=== PATIENT | female | born 1945 | race Caucasian/White ===

== ENCOUNTER 2016-08-26 08:55 | Inpatient (IN) | payer MEDICARE, OTHER ==
[2016-08-24 11:15] LABS: HEMOGLOBIN 12.1 g/dL (12.0-16.0)
[2016-08-24 11:23] LABS: BUN (BLOOD UREA NITROGEN) 23 MG/DL (6-23); CALCIUM, SERUM 10.1 MG/DL (8.5-10.4); CHLORIDE, SERUM 98 MMOL/L (96-112); CO2 (CARBON DIOXIDE) 31 MMOL/L (24-34); CREATININE 1.71 MG/DL (0.55-1.02); GFR AFRICAN AMERICAN 35 ML/MIN (>=60); GFR NON AFRICAN AMERICAN 30 ML/MIN (>=60); GLUCOSE, SERUM 350 MG/DL (60-99); POTASSIUM, SERUM 3.4 MMOL/L (3.5-5.3); SODIUM, SERUM 137 MMOL/L (135-148)
--- NOTE | ~2016-08-26 | CN ---
Consultation Report [facility] [address] [place]. [address] NAME: RINA LUTZ : 47 STATUS : ADM IN PAT#: [id number] AGE: 70 ADM/REG DATE : 08/26/16 MR#: [id number] REPORT SERV DATE: 08/31/16 DICTATED BY: DATE: REPORT STATUS : Draft TRANSCRIBED BY: MODL DATE: 08/31/16 CONSULT DATE OF CONSULTATION: REASON FOR CONSULTATION: Acute kidney injury. HISTORY OF PRESENT ILLNESS: Ms. Lutz is a 70-year-old white female with a history of rheumatoid arthritis, diabetes, hypertension, and COPD, who is here with lumbar spine surgery, postop day 5. In regard to kidney function, denies any history of kidney disease in the past; however, when I reviewed records, it looks as though she does have some degree of kidney disease. In 07/2016, her creatinines were around 1.1. On, 08/24/2016, her preop labs, her creatinine was 1.7. Since hospitalization, her creatinine has gone from 1.38-1.95 2.8-3.1. She suffered from postop hypotension with hypotension as recent as yesterday. She also had some urinary retention and problems with over sedation in the last 48 hours. Over the last 24 hours, she has had a Ojeda placed and she has had excellent urine output. She had over 2 L urine output yesterday and given that her creatinine has risen to 3.1, we have been asked to see her in consultation. Today, she is having problems with hypoglycemia and medicines have been adjusted. It is of note that the patient has been on Invokana, which can induce renal failure as well. No shortness of breath, chest pain, tightness, or pressure. No nausea, and vomiting. She is currently very drowsy as she has been up with physical therapy this morning. PAST MEDICAL HISTORY: Rheumatoid arthritis, diabetes, hypertension, hyperlipidemia, low back pain, scoliosis, obstructive sleep apnea, fibromyalgia, COPD, anemia, and hiatal hernia. ALLERGIES: NSAIDS, LORATADINE, AND SALICYLATE. SOCIAL HISTORY: She is , lives with her . No tobacco, alcohol, or illicit drug use. FAMILY MEDICAL HISTORY: RA and diabetes. CURRENT MEDICATIONS: Imuran, Coreg, vitamin D, Colace, Neurontin, Lopid, NovoLog, MS Contin, Deltasone, Crestor and Senokot. REVIEW OF SYSTEMS: 12-point review of systems is obtained and negative with the exception of that in the HPI. PHYSICAL EXAMINATION: VITAL SIGNS: Temp 98, blood pressure 141/75, pulse 86, respiratory rate 15, O2 saturation is 98%. GENERAL: This is a pleasant, cooperative, white female. She is currently very drowsy, but will awaken and answer questions. Consultation Report [place] [address] [place]. [address] NAME: RINA LUTZ : 47 STATUS : ADM IN PAT#: [id number] AGE: 70 ADM/REG DATE : 08/26/16 MR#: [id number] REPORT SERV DATE: 08/31/16 DICTATED BY: DATE: REPORT STATUS : Draft TRANSCRIBED BY: EMORY DATE: 08/31/16 HEENT: Normocephalic, atraumatic. Conjunctivae clear. Sclerae nonicteric. Oral mucosa is moist. NECK: Thick. No lymphadenopathy. Neck veins flat. RESPIRATIONS: Even and unlabored. Breath sounds are coarse and few scattered wheezes. HEART: Rate is regular. No murmur, rub, or gallop. ABDOMEN: Obese, soft, nontender. No CVA tenderness. EXTREMITIES: No edema, cyanosis, or clubbing. SKIN: No unusual rash or skin lesions. NEURO: Generalized weakness. No focal deficits. Mood and affect flat but appropriate. PERTINENT LABS AND X-RAYS: Sodium 135, potassium 3.9, chloride 102, CO2 of 22, BUN of 49, creatinine of 3.1, calcium 8.2, albumin of 2, magnesium 2.2. WBC 6.3, H and H 9 and 26, platelets 239,000. IMPRESSION: 1. Acute kidney injury on what is probable chronic kidney disease, stage 3. 2. Hypotension. 3. Over sedation. 4. Urinary retention. 5. Acute blood loss anemia. 6. Type 2 diabetes. 7. Rheumatoid arthritis. 8. Hypoglycemia. 9. Lumbar spine surgery, postop day 5. PLAN: Acute kidney injury, most likely due to hypotension with over sedation from pain medications plus or minus urinary retention. She has a Ojeda catheter in place with good urine output, would keep this for now. ARB and HCTZ, both have been held appropriately also Invokana. If her kidney function does not improve dramatically, she is not a candidate for that drug anymore. We will check urine studies as there is none available. I will not do any imaging given that she has excellent urine output. We will follow labs along with you. Hope to see improvement in kidney function in the next 24-48 hours. Further orders and recommendations, pending clinical course. GAL/EMORY AJAY CeilsP / [id number] CC: Rob Fishman II, M.D. Consultation Report [address] [place]. [address] NAME: RINA LUTZ : 47 STATUS : ADM IN [facility]#: [id number] AGE: 70 ADM/REG DATE : 08/26/16 MR#: [id number] REPORT SERV DATE: 08/31/16 DICTATED BY: DATE: REPORT STATUS : Draft TRANSCRIBED BY: MODL DATE: 08/31/16 Frank Jerez M.D.
--- NOTE | ~2016-08-26 | OP ---
Record Of Operation [facility] [address] [place]. [address] NAME: RINA LUTZ : 47 STATUS : ADM IN PAT#: [id number] AGE: 70 ADM/REG DATE : 08/26/16 MR#: [id number] REPORT SERV DATE: 08/28/16 DICTATED BY: ROBE FISHMAN II DATE: 08/28/16 REPORT STATUS : Draft TRANSCRIBED BY: MODL DATE: 08/28/16 DATE OF PROCEDURE: 08/26/2016 PREOPERATIVE DIAGNOSES: 1. Left greater than right lower extremity radiculopathy. 2. Severe scoliosis. 3. 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 4. 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 POSTOPERATIVE DIAGNOSES: 1. Left greater than right lower extremity radiculopathy. 2. Severe scoliosis. 3. 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 4. Nonunion, L2-3, L3-4. PROCEDURES: 1. Revision facetectomy and laminectomy, L3-4, L4-5. 2. Posterolateral arthrodesis, L2-3, L3-4, L4-5. 3. Interbody arthrodesis, L4-L5. 4. Application of prosthetic device, L4-L5. 5. Posterior segmental instrumentation, L2 to L5. 6. Use of local autograft, allograft substitute, and bone morphogenic protein. 7. Use of the microscope and stereotactic spinal imaging. SURGEON: Robe Fishman M.D. IV FLUIDS: 1800 mL LR. ESTIMATED BLOOD LOSS: 200 mL. DRAIN: One. COMPLICATIONS: None. PREOPERATIVE HISTORY: This is a friendly 70-year-old female, who did well for a while following her surgery. She has now developed recurrent stenosis at L3-4, but it appears her most symptomatic level is L4-5 below the previous fusion. We had chosen previously to perform a limited decompression and fusion and not pursue the entire scoliosis curve. I advised her again we could take this approach or we could consider approximately T10 to the pelvis fusion. It was not a component of this approach as I felt her bone was likely too soft and overall I felt that surgery was likely too large. She overall was having minimal back pain, but predominantly leg pain. DESCRIPTION OF PROCEDURE: After informed consent was obtained, the patient was brought to the operating room at her request and general anesthesia achieved. She was placed in prone position. The back was prepped and draped in a sterile fashion. The stereotactic spinal Record Of Operation [facility] [place] [address] [place]. [address] NAME: RINA LUTZ : 47 STATUS : ADM IN PAT#: [id number] AGE: 70 ADM/REG DATE : 08/26/16 MR#: [id number] REPORT SERV DATE: 08/28/16 DICTATED BY: ROBE FISHMAN II DATE: 08/28/16 REPORT STATUS : Draft TRANSCRIBED BY: EMORY DATE: 08/28/16 pin was placed into the iliac crest on the right and the intraoperative CT scan completed. Stereotactic guidance was then used throughout the case. Next, the minimally invasive incision was then performed on the left at L4-5 and also L2-3 and L3-4. The area was evaluated. There was clearly still obvious motion at L2-3 and L3-4. This established our suspicion of nonunion at L2-3 and L3-4. At this point, with the microscope in place, we then removed the facet at L4-5. A complete facetectomy was performed. There was fairly severe compression upon the exiting L4 nerve root from the coronal collapse noted on the standing AP radiograph from the office. At this point, the L4 nerve root was acceptably decompressed and now we turned our attention to the L5 nerve root, where additional facet and ligamentum flavum were removed. At this point, we then performed an interbody approach at L4-5. The disk was now removed and the endplates prepared. The heidy and curettes were now used. The prosthetic device was then chosen at L4-5. It was placed without difficulty. At this point, we also placed local autograft and allograft substitute at the disk space at L4-5. At this point, we then placed pedicle screws from L2 to L5. Again, the bone quality was moderately osteoporotic. We then on the right side removed the screws at L2-L3 and then placed new hardware from L2 to L5. A repeat CT scan confirmed acceptable placement of the implants. The rods were contoured at this point, which was overall rather difficult because of the scoliosis. Final tightening was performed. At this point, we then decorticated the transverse processes of L2, L3, L4, and L5. Local autograft was in place along the decorticated surfaces along with bone morphogenic protein and allograft substitute. A deep drain was placed followed by standard closure, and the patient was then extubated and transferred to PACU in stable condition. ROJAS/EMORY Robe Fishman II, M.D. / [id number] CC: Kim Starr II, M.D.
--- NOTE | ~2016-08-26 | DS ---
Discharge Summary [place] [address] [facility] [place]. [address] NAME: RINA LUTZ : 47 STATUS : DIS IN PAT#: [id number] AGE: 70 ADM/REG DATE : 08/26/16 MR#: [id number] REPORT SERV DATE: 09/15/16 DICTATED BY: ROBE FISHMAN II DATE: 09/14/16 REPORT STATUS : Draft TRANSCRIBED BY: EMORY DATE: 09/14/16 Data Collection from hospitalization DISCHARGE DIAGNOSES: 1. Left greater than right lower extremity radiculopathy. 2. Severe scoliosis. 3. 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 4. 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 5. Hypertension. 6. Diabetes. 7. Anemia. 8. Arthritis. 9. Gastroesophageal reflux disease. 10.Hyperlipidemia. 11.Osteoarthritis. 12.Rheumatoid arthritis. 13.Scoliosis. 14.Hypercholesterolemia. CONSULTATIONS: 1. ROSA Celis. 2. Sean Garza APN. PROCEDURES PERFORMED: Revision facetectomy and laminectomy L3-4 and L4-5; posterolateral arthrodesis L2-3, L3-4, L4-5; interbody arthrodesis L4-L5; application of prosthetic device at L4-L5; posterior segmental instrumentation L2-L5; use of local autograft, allograft substitute, and bone morphogenic protein; use of microscope and stereotactic spinal imaging on 08/26/2016. PATHOLOGY: Lumbar spine L2-L5 removal and repair - orthopedic hardware (gross assessment). Fragmented bone cartilage and soft tissue. No evidence was seen of an infectious or neoplastic process. MEDICATIONS: Imuran 50 mg twice a day, Coreg 3.125 mg twice a day - hold for systolic blood pressure less than 100, vitamin D 65560 units on Wednesdays at 9 a.m., Neurontin 100 mg daily, Lopid 600 mg twice a day, NovoLog injection insulin as instructed, Crestor 40 mg at bedtime, Senokot two tablets daily, Deltasone 5 mg every morning as instructed, Fosamax 70 mg on Monday, Prolia 60 mg subcutaneously as instructed, aspirin 81 mg daily, Zyrtec 10 mg daily as needed, Roxicodone 5 mg every four hours as needed for pain, Valium 2 mg every four hours as needed for muscle spasms, MiraLAX 1 packet daily as instructed, and lactulose 30 mL daily as instructed. CONDITION AT DISCHARGE: Stable. DISPOSITION: The patient was discharged to [facility] on an 1800-calorie diabetic diet. Activities as instructed. She would follow up with [facility] 3- 4 weeks following discharge. She would follow up with Dr. Robe Fishman 2 weeks following discharge. She would follow up with her primary care physician 3-4 weeks following Discharge Summary [place] [address] [place]. [address] NAME: RINA LUTZ : 47 STATUS : DIS IN PAT#: [id number] AGE: 70 ADM/REG DATE : 08/26/16 MR#: [id number] REPORT SERV DATE: 09/15/16 DICTATED BY: ROBE FISHMAN II DATE: 09/14/16 REPORT STATUS : Draft TRANSCRIBED BY: EMORY DATE: 09/14/16 discharge. HOSPITAL COURSE: This is a 70-year-old female who had complained of lumbar spine related symptoms. Her symptoms were located at the mid lower back when she was still with radiation into the bilateral hips and into the bilateral lower extremities when she was walking. She had associated numbness, tingling, and weakness. The patient reports that she was last seen in the office two weeks prior to this admission. She reported that her pain level was a 6 on a scale of 0 to 10. She has left greater than right lower extremity radiculopathy. She has severe scoliosis and suspected nonunion. She has nonunion at L2-3 and L3-4. Treatment options were discussed, and it was elected to proceed with surgical intervention. She was admitted to the hospital for further evaluation and treatment. Upon admission, she was taken to the operating room where she underwent the above-mentioned procedure. She tolerated this well, and there were no complications. On postop day #1, she was alert and cooperative. She was in no acute distress. She had a normal respiratory effort. On the , she remained stable. She was evaluated by Physical Therapy. She was seen in consultation. She was seen by Sean Garza. The patient had some postop hypotension, some hyponatremia, and hypokalemia. The patient was still on home hydrochlorothiazide, losartan, and carvedilol. She has hypoglycemia on Amaryl. She did complain of some back pain. Her MS Contin has been held secondary to hypotension. Hydrochlorothiazide and losartan were discontinued, Coreg would be held if systolic blood pressure was less than 100. IV fluids were being provided. Januvia was added, Amaryl was discontinued. Potassium supplementation was provided. Beta-loren was continued. On 08/29/2016, she remained stable. She did complain of some abdominal pain. We encouraged her to mobilize. Orthostatic blood pressures were checked. She had been complaining of some abdominal discomfort and had poor oral intake. IV fluids were continued. Creatinine had increased to 1.95. The next day, she received two units of packed red blood cells. She denied chest pain, shortness of breath, or abdominal pain. A bladder scan had been performed. The Ojeda catheter was placed for some urinary retention. Creatinine was now 2.81. She was felt to have acute kidney injury on chronic kidney disease. She has not had a bowel movement postoperatively. She has obstructive sleep apnea, and her said she is intolerant of the CPAP. A laxative was given. Sliding scale insulin continued. The next day, she seemed to be more alert. Oral intake was improving. She still felt a little weak. She did have a bowel movement. Creatinine had risen despite IV fluids and transfusion. She was seen by Deb Nava regarding acute kidney injury. Over the last 24 hours, she had a Ojeda placed and had excellent urine output. Her creatinine had risen to 3.1. She had some problems with hypoglycemia, and her medications were adjusted. The patient had been on Invokana, which can induce renal failure. Her impression included acute kidney injury and what was probable stage 3 chronic kidney disease. It was felt the acute kidney injury was most likely due to hypotension with over sedation from pain medications and possible urinary retention. A Ojeda catheter would remain in place for now. ARB and hydrochlorothiazide have both been held appropriately as well as Invokana. If her kidney function did not improve dramatically, she was not a candidate for that drug anymore. Urine studies would be checked. We hope to see improvement in kidney function over the next 24 to 48 hours. Discharge Summary [place] [address] [place]. [address] NAME: RINA LUTZ : 47 STATUS : DIS IN [facility]#: [id number] AGE: 70 ADM/REG DATE : 08/26/16 MR#: [id number] REPORT SERV DATE: 09/15/16 DICTATED BY: ROBE FISHMAN II DATE: 09/14/16 REPORT STATUS : Draft TRANSCRIBED BY: EMORY DATE: 09/14/16 On 09/01/2016, she had no new complaints. Her appetite continued to improve. Creatinine was 2.90. Ojeda catheter remained in place. Hemoglobin level was stable. Sliding scale insulin was continued. She had no shortness of breath. She had excellent urine output. The next day, she continued to do well. She was up sitting in a chair. Discharge planning was performed. She continued to have good urine output. Creatinine was 2.45. It was felt that she may need a redo sleep study. MS Contin was discontinued. Hemoglobin A1c was going to be checked. On 09/03/2016, she remained stable. She was eager to get to rehab. She had no new complaints. ARB, hydrochlorothiazide, and Invokana would remain on hold. She had mild abdominal distention. She was passing some flatus. Her appetite was good. Discharge instructions were given. Due to her improved and stable condition, she was discharged to [facility] with the above-stated instructions. Information collected by: Yulisa Claros I submit the above information as my discharge summary. WILNER/EMORY Robe Fishman II, M.D. / [id number] CC: Kim Starr II, M.D. [facility]A Celis
[~2016-08-26 08:55] MED LIST: AMARYL1 MG PO; AMARYL4 PO; ASAB PO; C5 PO; CARDIZEM LA120 MG PO; CLARIT10 PO; COREG3 PO; CRESTOR40 MG PO; DIOVAN320 MG PO; FERROUS SULF324 MG PO; FERROUS SULF325 M1 PO; FLEX PO; FOLIC PO; FOSAMAX70 MG PO; GLUCOPHAGE1000 MG PO; GLUCPH8 PO; HCTZ25B PO; HEMOCYTE324 MG PO; HUMIRA PEN SC; HYDROCHLOROT25 MG PO; IMU PO; INVOKANA100 MG PO; LOPID6 PO; LORTAB10 PO; LOTENSIN HCT1 TA2 PO; MAXIMUM D3 PO; MSCONT15 PO; MTX2.5 PO; NEUR100 PO; NORCO1 TAB PO; P5 PO; PCET PO; PERCOCET 10/3251 TAB PO; PRILO PO; PRILOSEC40 MG PO; PROLIA60 MG/1 ML SC; REMICADE IV; TIAZA5 PO; V2 PO; V5 PO; VICTOZA18 MG/3 ML SC; VITAMIN D1000 UNI1 PO; VITAMIN D3 PO; WELCHOL 625 MG625 MG OR; WELCHOL 625 MG625 MG PO; ZANAFLEX 4 MG TA4 MG PO; ZYRTEC ALLGY10 MG PO; [UNRECOGNIZED DRUG - OTHER] IM/SC
[2016-08-28 06:47] LABS: BASOPHILS 0.2 %; BASOPHILS ABSOLUTE 0.02 10/3/uL (0.0-0.16); EOSINOPHILS 0.8 %; EOSINOPHILS ABSOLUTE 0.08 10/3/uL (0.0-0.53); IMMATURE GRANULOCYTES 0.4 %; IMMATURE GRANULOCYTES ABSOLUTE 0.04 10/3/uL (0.0-0.11); LYMPHOCYTES 8.8 %; LYMPHOCYTES ABSOLUTE 0.89 10/3/uL (0.67-4.30); MEAN CORPUSCULAR HEMOGLOB 30.5 pg (26.0-34.0); MEAN PLATELET VOLUME 8.7 fL (9.2-13.0); MONOCYTES 15.3 %; MONOCYTES ABSOLUTE 1.55 10/3/uL (0.21-1.20); NEUTROPHILS 74.5 %; NEUTROPHILS ABSOLUTE 7.55 10/3/uL (2.02-8.40); RBC DISTRIBUTION WIDTH 13.4 % (12.0-16.0); WHITE BLOOD CELLS 10.1 10/3/uL (4.5-10.5)
[2016-08-28 06:48] LABS: HEMATOCRIT 25.4 % (36.0-48.0); HEMOGLOBIN 8.9 g/dL (12.0-16.0); RED CELL COUNT 2.92 10/6/uL (4.0-5.6)
[2016-08-28 06:49] LABS: MANUAL DIFF NO %; PLATELET COUNT 196 10/3/uL (150-400)
[2016-08-28 06:59] LABS: BUN (BLOOD UREA NITROGEN) 22 MG/DL (6-23); CHLORIDE, SERUM 93 MMOL/L (96-112); CREATININE 1.38 MG/DL (0.55-1.02); GFR AFRICAN AMERICAN 45 ML/MIN (>=60); GFR NON AFRICAN AMERICAN 39 ML/MIN (>=60); POTASSIUM, SERUM 3.2 MMOL/L (3.5-5.3)
[2016-08-28 07:00] LABS: CALCIUM, SERUM 9.1 MG/DL (8.5-10.4); CO2 (CARBON DIOXIDE) 25 MMOL/L (24-34); GLUCOSE, SERUM 182 MG/DL (60-99); SODIUM, SERUM 127 MMOL/L (135-148)
[2016-08-29 05:04] LABS: BASOPHILS 0.1 %; BASOPHILS ABSOLUTE 0.01 10/3/uL (0.0-0.16); EOSINOPHILS 0.7 %; EOSINOPHILS ABSOLUTE 0.06 10/3/uL (0.0-0.53); HEMOGLOBIN 7.8 g/dL (12.0-16.0); IMMATURE GRANULOCYTES 0.4 %; IMMATURE GRANULOCYTES ABSOLUTE 0.03 10/3/uL (0.0-0.11); LYMPHOCYTES 8.7 %; LYMPHOCYTES ABSOLUTE 0.73 10/3/uL (0.67-4.30); MEAN CORPUS HGB CONC 34.8 g/dL (32.0-36.0); MEAN CORPUSCULAR HEMOGLOB 30.5 pg (26.0-34.0); MEAN CORPUSCULAR VOLUME 87.5 fL (80-100); MEAN PLATELET VOLUME 8.5 fL (9.2-13.0); MONOCYTES 10.4 %; MONOCYTES ABSOLUTE 0.88 10/3/uL (0.21-1.20); NEUTROPHILS 79.7 %; NEUTROPHILS ABSOLUTE 6.72 10/3/uL (2.02-8.40); PLATELET COUNT 184 10/3/uL (150-400); RBC DISTRIBUTION WIDTH 13.7 % (12.0-16.0); RED CELL COUNT 2.56 10/6/uL (4.0-5.6); WHITE BLOOD CELLS 8.4 10/3/uL (4.5-10.5)
[2016-08-29 05:06] LABS: HEMATOCRIT 22.4 % (36.0-48.0); MANUAL DIFF NO %
[2016-08-29 05:18] LABS: BUN (BLOOD UREA NITROGEN) 30 MG/DL (6-23); CALCIUM, SERUM 8.7 MG/DL (8.5-10.4); CHLORIDE, SERUM 96 MMOL/L (96-112); CO2 (CARBON DIOXIDE) 23 MMOL/L (24-34); CREATININE 1.95 MG/DL (0.55-1.02); GFR AFRICAN AMERICAN 30 ML/MIN (>=60); GFR NON AFRICAN AMERICAN 26 ML/MIN (>=60); GLUCOSE, SERUM 96 MG/DL (60-99); POTASSIUM, SERUM 3.5 MMOL/L (3.5-5.3); SODIUM, SERUM 130 MMOL/L (135-148)
[2016-08-30 05:01] LABS: HEMATOCRIT 19.9 % (36.0-48.0); MEAN CORPUS HGB CONC 35.2 g/dL (32.0-36.0); MEAN CORPUSCULAR HEMOGLOB 30.3 pg (26.0-34.0); MEAN CORPUSCULAR VOLUME 86.1 fL (80-100); MEAN PLATELET VOLUME 8.4 fL (9.2-13.0); PLATELET COUNT 235 10/3/uL (150-400); RBC DISTRIBUTION WIDTH 13.7 % (12.0-16.0); RED CELL COUNT 2.31 10/6/uL (4.0-5.6); WHITE BLOOD CELLS 8.1 10/3/uL (4.5-10.5)
[2016-08-30 05:02] LABS: MANUAL DIFF YES %
[2016-08-30 05:08] LABS: CALCIUM, SERUM 8.6 MG/DL (8.5-10.4); CHLORIDE, SERUM 98 MMOL/L (96-112); CO2 (CARBON DIOXIDE) 20 MMOL/L (24-34); POTASSIUM, SERUM 3.6 MMOL/L (3.5-5.3); SODIUM, SERUM 132 MMOL/L (135-148)
[2016-08-30 05:09] LABS: BUN (BLOOD UREA NITROGEN) 40 MG/DL (6-23); CREATININE 2.81 MG/DL (0.55-1.02); GFR AFRICAN AMERICAN 19 ML/MIN (>=60); GFR NON AFRICAN AMERICAN 16 ML/MIN (>=60); GLUCOSE, SERUM 52 MG/DL (60-99)
[2016-08-30 05:26] LABS: BAND NEUTROPHILS 6 %; LYMPHOCYTES 10 %; LYMPHOCYTES ABSOLUTE (CALC) 0.81 10/3/uL (0.67-4.30); MONOCYTES 11 %; MONOCYTES ABSOLUTE (CALC) 0.89 10/3/uL (0.21-1.20); PLATELET ESTIMATE ADQ (ADEQUATE); RBC MORPHOLOGY NORM (NORMAL); SEGMENTED NEUTROPHIL (0) 73 %; TOTAL NUCLEATED CELLS 100
[2016-08-31 04:33] LABS: MEAN CORPUS HGB CONC 35.7 g/dL (32.0-36.0); MEAN CORPUSCULAR HEMOGLOB 30.3 pg (26.0-34.0); MEAN CORPUSCULAR VOLUME 84.9 fL (80-100); MEAN PLATELET VOLUME 8.8 fL (9.2-13.0); PLATELET COUNT 239 10/3/uL (150-400); RBC DISTRIBUTION WIDTH 14.7 % (12.0-16.0); WHITE BLOOD CELLS 6.3 10/3/uL (4.5-10.5)
[2016-08-31 04:39] LABS: HEMOGLOBIN 9.6 g/dL (12.0-16.0); RED CELL COUNT 3.17 10/6/uL (4.0-5.6)
[2016-08-31 04:40] LABS: HEMATOCRIT 26.9 % (36.0-48.0); MANUAL DIFF YES %
[2016-08-31 04:48] LABS: BUN (BLOOD UREA NITROGEN) 43 MG/DL (6-23); CALCIUM, SERUM 8.2 MG/DL (8.5-10.4); CHLORIDE, SERUM 102 MMOL/L (96-112); CO2 (CARBON DIOXIDE) 22 MMOL/L (24-34); CREATININE 3.11 MG/DL (0.55-1.02); GFR AFRICAN AMERICAN 17 ML/MIN (>=60); GFR NON AFRICAN AMERICAN 15 ML/MIN (>=60); GLUCOSE, SERUM 59 MG/DL (60-99); PHOSPHORUS, SERUM 3.1 MG/DL (2.5-4.5); POTASSIUM, SERUM 3.9 MMOL/L (3.5-5.3); SODIUM, SERUM 135 MMOL/L (135-148)
[2016-08-31 06:20] LABS: BAND NEUTROPHILS 8 %; EOSINOPHILS 4 %; EOSINOPHILS ABSOLUTE (CALC) 0.25 10/3/uL (0.0-0.53); LYMPHOCYTES 3 %; LYMPHOCYTES ABSOLUTE (CALC) 0.19 10/3/uL (0.67-4.30); MONOCYTES 9 %; MONOCYTES ABSOLUTE (CALC) 0.57 10/3/uL (0.21-1.20); NEUTROPHILS ABSOLUTE (CALC) 5.29 10/3/uL (2.02-8.40); PLATELET ESTIMATE ADQ (ADEQUATE); RBC MORPHOLOGY NORM (NORMAL); SEGMENTED NEUTROPHIL (0) 76 %; TOTAL NUCLEATED CELLS 100
[2016-08-31 16:02] LABS: ASCORBIC ACID (UR NOT ORDER) NEG (NEG); BILIRUBIN, URINE NEGATIVE (NEG); KETONE, URINE NEGATIVE (NEG); LEUKOCYTE ESTERASE(NOT OR SMALL (NEG); WBC (NOT ORDERED) (RFLEX) 9 (0-5)
[2016-09-01 04:28] LABS: HEMATOCRIT 26.3 % (36.0-48.0); HEMOGLOBIN 9.2 g/dL (12.0-16.0); MEAN CORPUSCULAR VOLUME 85.7 fL (80-100); MEAN PLATELET VOLUME 8.2 fL (9.2-13.0); PLATELET COUNT 276 10/3/uL (150-400); RBC DISTRIBUTION WIDTH 14.9 % (12.0-16.0); RED CELL COUNT 3.07 10/6/uL (4.0-5.6); WHITE BLOOD CELLS 5.6 10/3/uL (4.5-10.5)
[2016-09-01 04:30] LABS: MANUAL DIFF YES %
[2016-09-01 04:42] LABS: BUN (BLOOD UREA NITROGEN) 45 MG/DL (6-23); CALCIUM, SERUM 8.5 MG/DL (8.5-10.4); CHLORIDE, SERUM 103 MMOL/L (96-112); CO2 (CARBON DIOXIDE) 21 MMOL/L (24-34); GFR AFRICAN AMERICAN 18 ML/MIN (>=60); GFR NON AFRICAN AMERICAN 16 ML/MIN (>=60); PHOSPHORUS, SERUM 3.5 MG/DL (2.5-4.5); POTASSIUM, SERUM 3.6 MMOL/L (3.5-5.3); SODIUM, SERUM 134 MMOL/L (135-148)
[2016-09-01 04:48] LABS: GLUCOSE, SERUM 43 MG/DL (60-99)
[2016-09-01 05:45] LABS: BAND NEUTROPHILS 4 %; BASOPHILS 1 %; BASOPHILS ABSOLUTE (CALC) 0.06 10/3/uL (0.0-0.16); EOSINOPHILS 6 %; EOSINOPHILS ABSOLUTE (CALC) 0.34 10/3/uL (0.0-0.53); LYMPHOCYTES 12 %; LYMPHOCYTES ABSOLUTE (CALC) 0.67 10/3/uL (0.67-4.30); MONOCYTES 13 %; MONOCYTES ABSOLUTE (CALC) 0.73 10/3/uL (0.21-1.20); NEUTROPHILS ABSOLUTE (CALC) 3.81 10/3/uL (2.02-8.40); SEGMENTED NEUTROPHIL (0) 64 %; TOTAL NUCLEATED CELLS 100
[2016-09-01 05:46] LABS: BURR CELLS 1+ (3-10/OIF) (0-2/OIF)
[2016-09-02 04:38] LABS: BASOPHILS 0.4 %; BASOPHILS ABSOLUTE 0.02 10/3/uL (0.0-0.16); EOSINOPHILS 5.9 %; EOSINOPHILS ABSOLUTE 0.27 10/3/uL (0.0-0.53); HEMATOCRIT 27.6 % (36.0-48.0); HEMOGLOBIN 9.5 g/dL (12.0-16.0); IMMATURE GRANULOCYTES 0.9 %; IMMATURE GRANULOCYTES ABSOLUTE 0.04 10/3/uL (0.0-0.11); LYMPHOCYTES 16.7 %; LYMPHOCYTES ABSOLUTE 0.76 10/3/uL (0.67-4.30); MEAN CORPUS HGB CONC 34.4 g/dL (32.0-36.0); MEAN CORPUSCULAR HEMOGLOB 29.8 pg (26.0-34.0); MEAN CORPUSCULAR VOLUME 86.5 fL (80-100); MEAN PLATELET VOLUME 8.1 fL (9.2-13.0); MONOCYTES 19.2 %; MONOCYTES ABSOLUTE 0.87 10/3/uL (0.21-1.20); NEUTROPHILS 56.9 %; NEUTROPHILS ABSOLUTE 2.58 10/3/uL (2.02-8.40); PLATELET COUNT 325 10/3/uL (150-400); RBC DISTRIBUTION WIDTH 14.5 % (12.0-16.0); RED CELL COUNT 3.19 10/6/uL (4.0-5.6); WHITE BLOOD CELLS 4.5 10/3/uL (4.5-10.5)
[2016-09-02 04:40] LABS: MANUAL DIFF NO %
[2016-09-02 04:46] LABS: ALBUMIN 2.1 G/DL (3.5-5.0); BUN (BLOOD UREA NITROGEN) 47 MG/DL (6-23); CALCIUM, SERUM 9.2 MG/DL (8.5-10.4); CHLORIDE, SERUM 103 MMOL/L (96-112); CO2 (CARBON DIOXIDE) 21 MMOL/L (24-34); CREATININE 2.45 MG/DL (0.55-1.02); GFR AFRICAN AMERICAN 23 ML/MIN (>=60); GFR NON AFRICAN AMERICAN 19 ML/MIN (>=60); PHOSPHORUS, SERUM 3.9 MG/DL (2.5-4.5); POTASSIUM, SERUM 3.5 MMOL/L (3.5-5.3); SODIUM, SERUM 138 MMOL/L (135-148)
[2016-09-02 04:48] LABS: GLUCOSE, SERUM 84 MG/DL (60-99)
[2016-09-03 06:22] LABS: HEMATOCRIT 26.4 % (36.0-48.0); HEMOGLOBIN 9.1 g/dL (12.0-16.0); MEAN CORPUS HGB CONC 34.5 g/dL (32.0-36.0); MEAN CORPUSCULAR HEMOGLOB 29.8 pg (26.0-34.0); MEAN CORPUSCULAR VOLUME 86.6 fL (80-100); MEAN PLATELET VOLUME 8.1 fL (9.2-13.0); PLATELET COUNT 324 10/3/uL (150-400); RBC DISTRIBUTION WIDTH 14.2 % (12.0-16.0); RED CELL COUNT 3.05 10/6/uL (4.0-5.6); WHITE BLOOD CELLS 3.6 10/3/uL (4.5-10.5)
[2016-09-03 06:25] LABS: MANUAL DIFF YES %
[2016-09-03 06:30] LABS: CHLORIDE, SERUM 107 MMOL/L (96-112); CO2 (CARBON DIOXIDE) 21 MMOL/L (24-34); GFR AFRICAN AMERICAN 31 ML/MIN (>=60); GFR NON AFRICAN AMERICAN 27 ML/MIN (>=60); GLUCOSE, SERUM 81 MG/DL (60-99); SODIUM, SERUM 138 MMOL/L (135-148)
[2016-09-03 06:31] LABS: BUN (BLOOD UREA NITROGEN) 42 MG/DL (6-23); CREATININE 1.87 MG/DL (0.55-1.02)
[2016-09-03 06:59] LABS: BAND NEUTROPHILS 10 %; EOSINOPHILS 3 %; EOSINOPHILS ABSOLUTE (CALC) 0.11 10/3/uL (0.0-0.53); LYMPHOCYTES 18 %; LYMPHOCYTES ABSOLUTE (CALC) 0.65 10/3/uL (0.67-4.30); MONOCYTES 22 %; MONOCYTES ABSOLUTE (CALC) 0.79 10/3/uL (0.21-1.20); NEUTROPHILS ABSOLUTE (CALC) 2.05 10/3/uL (2.02-8.40); PLATELET ESTIMATE ADQ (ADEQUATE); SEGMENTED NEUTROPHIL (0) 47 %; TOTAL NUCLEATED CELLS 100
[2016-09-03 07:00] LABS: TOXIC GRANULATION SLT
== END 2016-09-03 16:26 | DRG 457 ==
LOC: SDC/OF 08:55 → 3SO 18:32
PROVIDERS: Hospitalist; Nurse Practitioner; Nurse Practitioner Gerontology; Orthopaedic Surgery
PROC: 0SG10A1 (ICD-10-PCS; principal; 2016-08-26 11:15)
PROC: 0ST20ZZ Resection of Lumbar Vertebral Disc, Open Approach (ICD-10-PCS; 2016-08-26 11:15)
PROC: 4A11X4G Monitoring of Peripheral Nervous Electrical Activity, Intraoperative, External Approach (ICD-10-PCS; 2016-08-26 11:15)
PROC: 30233N1 Transfusion of Nonautologous Red Blood Cells into Peripheral Vein, Percutaneous Approach (ICD-10-PCS; 2016-08-30)
DX: M41.86 Other forms of scoliosis, lumbar region (principal); N17.9 Acute kidney failure, unspecified; E87.1 Hypo-osmolality and hyponatremia; E11.65 Type 2 diabetes mellitus with hyperglycemia; D62 Acute posthemorrhagic anemia; M48.07 Spinal stenosis, lumbosacral region; J44.9 Chronic obstructive pulmonary disease, unspecified; N18.3 Chronic kidney disease, stage 3 (moderate); E87.6 Hypokalemia
CPT/HCPCS: 36415; 80048; 80069; 81001; 82533; 82962; 83036; 83735; 84132; 85014; 85018; 85025; 86850; 86900; 86901; 86920; 87086; 87641; 88300; 88304; 88311; 93005; 97110-GP; 97116-GP; 97162-GP; A9270-GY; C1713; C1769; G8978-CJ-GP; G8979-CH-GP; J0690; J1170; J1720; J2250; J2270; J2370; J2405; J2710; J3010; J3370; J3475; J7500; P9016; P9045